=== PATIENT | female | born 1990 | race Caucasian/White ===

== ENCOUNTER → 2021-04-28 | Outpatient (CLI) | payer OTHER ==
--- NOTE | 2021-04-28 14:01 | Diagnostic Imaging Report ---
INDICATION: Encounter for supervision of normal first , second trimester. TECHNIQUE: Multiple real-time grayscale images were obtained over the gravid uterus. COMPARISON: None. FINDINGS: There is a single live fetus in a transverse presentation with head to the maternal right. heart rate was recorded at 143 BPM. Placenta is anterior. Amniotic fluid volume is normal. kidneys, bladder, and stomach are unremarkable. brain is unremarkable. Four-chamber heart view is somewhat limited due to position and movement. There is a three-vessel cord with normal insertion. Spine is unremarkable. Cervical length is 4.7 cm. Biometrical measurements are as follows: Biparietal 4.66 cm, age 20 weeks 1 days. Head circumference 16.70 cm, age 19 weeks 3 days. Abdominal circumference 14.55 cm, age 20 weeks 0 days. Femur length 3.26 cm, age 20 weeks 2 days. Sonographic estimate age: 20 weeks 0 days. Sonographic estimated date of delivery: 09/15/21. Estimated Weight: 323 gm (+/- 47 gm). LMP percentile: 51%. heart rate: 143 beats per minute. number: 1 of 1. IMPRESSION: Single live IUP of 20 weeks 0 days gestational age. Estimated date of confinement sonographically is 09/15/2021. No complicating features are seen. Survey is unremarkable, although the four-chamber heart view was limited due to position. Dictated by: Dictated on workstation # [id number]
== END ==
LOC: RAD 12:00
PROVIDERS: ATTEND Obstetrics & Gynecology
DX: Z34.02 Encounter for supervision of normal first pregnancy, second trimester (principal); Z3A.20 20 weeks gestation of pregnancy
CPT/HCPCS: 76805

== ENCOUNTER 2021-08-31 20:48 | Inpatient (IN) | payer OTHER ==
[2021-08-31] VITALS (26 sets, daily range): BP systolic 102–121; BP diastolic 58–78
[~2021-08-31] VITALS: Ht 167.7 cm; Wt 73.3 kg
[2021-08-31] MEDS ORDERED: D5 LR IV SOLUTION 1,000 ML IV ONE (21:13)
[2021-08-31] MEDS: D5 LR IV SOLUTION 1,000 ML IV SCH (21:27)
[2021-08-31] MEDS ORDERED: fentaNYL 2 mcg/ml BUPIVA 0.125 0 ML ONE (21:28)
[2021-08-31 21:39] LABS: BASOPHILS % (AUTO) 0 % (0-10); EOSINOPHILS # (AUTO) 0.1 10^3/uL (0.0-0.3); EOSINOPHILS % (AUTO) 1 % (0-10); HEMATOCRIT 37 % (35-52); HEMOGLOBIN 12.8 g/dL (11.5-16.0); LYMPHOCYTES # (AUTO) 1.7 10^3/uL (1.0-4.0); LYMPHOCYTES % (AUTO) 16 % (12-44); MEAN CORPUSCULAR HEMOGLOBIN 32 pg (25-34); MEAN CORPUSCULAR HGB CONC 34 g/dL (32-36); MEAN CORPUSCULAR VOLUME 93 fL (80-99); MEAN PLATELET VOLUME 10.5 fL (9.0-12.2); MONOCYTES # (AUTO) 0.8 10^3/uL (0.0-1.0); MONOCYTES % (AUTO) 7 % (0-12); NEUTROPHILS % (AUTO) 74 % (42-75); PLATELET COUNT 135 10^3/uL (130-400); WHITE BLOOD COUNT 10.7 10^3/uL (4.3-11.0)
[2021-08-31] MEDS ORDERED: CATHETER FLUSH 10 ML SYR IV PRN (21:45)
--- NOTE | 2021-08-31 21:52 | History & Physical-OB ---
RADHA BARCLAY 08/31/212151: OB - Chief Complaint & HPI Date/Time Date of Admission: Date of Admission: Date seen by a Provider: Aug 31, 2021 Time Seen by a Provider: 21:45 Chief Complaint/History OB-Reason for Admission/Chief: Onset of Labor (Patient began having contractions 5 minutes apart around 18:00) Hx : 5 Hx Para: 3 Gestational Age in Weeks: 37 Gestational Age in Days: 5 Admission Nurse Assessment Rev: Yes Allergies and Home Medications Allergies Coded Allergies: Penicillins (Verified Allergy, Intermediate, Hives, 08/31/21) OB - History Hx of Present Care: Yes Ultrasounds: Normal mid trimester US Obstetrical Complications: None Medical Complications: None Obstetrical History Hx # Term Pregnancies: 1 Hx # Pregnancies: 2 Number of Living Children: 3 Hx Total # of Abortions (Spona: 1 Patient Past Medical History Had uterine polyps removed and the lining of her uterus was resected last year OB - Admission Exam Physical Exam HEENT: TMs Normal Heart: Rhythm Normal Lungs: Clear Abdomen: Soft Extremities: Normal Reflexes: Normal Cervical Dilatation: 5cm Effacement: 75% Station: 0 Membranes: Intact Heart Rate: 140's Accelerations: Accelerations Present Decelerations: No Decelerations Short Term Variability: Present Aluminum Container Tester Variability: Average (6-25) Contractions on Admission: 6-10 Minutes Apart (Started around 18:00) Intensity: Moderate Guillaume Scoring Tool (Modified) Dilation (cm): >5cm (3) Effacement (%): 51-79% (2) Descent/Station: -1,0 (2) Cervix Consistency: Medium(1) Cervix Position: Anterior (2) Add 1 point for: Each previous vaginal delivery (1) (2 previous vaginal deliveries) Guillaume Score: 12 Labs Laboratory Tests Test 08/31/21 21:20 Range/Units White Blood Count 10.7 4.3-11.0 10^3/uL Red Blood Count 4.04 3.80-5.11 10^6/uL Hemoglobin 12.8 11.5-16.0 g/dL Hematocrit 37 35-52 % Mean Corpuscular Volume 93 80-99 fL Mean Corpuscular Hemoglobin 32 25-34 pg Mean Corpuscular Hemoglobin Concent 34 32-36 g/dL Red Cell Distribution Width 13.0 10.0-14.5 % Platelet Count 135 130-400 10^3/uL Mean Platelet Volume 10.5 9.0-12.2 fL Immature Granulocyte % (Auto) 2 % Neutrophils (%) (Auto) 74 42-75 % Lymphocytes (%) (Auto) 16 12-44 % Monocytes (%) (Auto) 7 0-12 % Eosinophils (%) (Auto) 1 0-10 % Basophils (%) (Auto) 0 0-10 % Neutrophils # (Auto) 8.0 H 1.8-7.8 10^3/uL Lymphocytes # (Auto) 1.7 1.0-4.0 10^3/uL Monocytes # (Auto) 0.8 0.0-1.0 10^3/uL Eosinophils # (Auto) 0.1 0.0-0.3 10^3/uL Basophils # (Auto) 0.0 0.0-0.1 10^3/uL Immature Granulocyte # (Auto) 0.2 H 0.0-0.1 10^3/uL OB - Assessment/Plan/Diagnosis Assessment Assessment: active labor Admission Bety Arora is a 31yo F @ 37w5d here for active labor. Was seen in Dr. Spear's office this morning and had her membranes sweeped. Had some contractions throughout the day and around 18:00 the patient started to have contractions every 5 minutes so she decided to come to the hospital. Her last was a and she is wanting to attempt another for this . Admission Status: Inpatient Order (span 2 midnights) Reason for Inpatient Admission: Plan Plan: Induction Induction Method: per Pitocin Protocol KATHIE SPEAR DO 08/31/21 4305: Allergies and Home Medications Allergies Coded Allergies: Penicillins (Verified Allergy, Intermediate, Hives, 08/31/21) Patient Home Medication List Home Medication List Reviewed: Yes RADHA BARCLAY Aug 31, 2021 21:52 KATHIE SPEAR DO Aug 31, 2021 23:45
[2021-08-31] MEDS ORDERED: fentaNYL INJ 100 MCG/2 ML AMP ONE (22:59)
[2021-08-31] MEDS ORDERED: OXYTOCIN PRE-MIX DRIP 500 ML IV ONE ×2 (22:59→23:42)
--- NOTE | 2021-08-31 23:43 | OB Labor & Delivery Record ---
L&D History Date of Service Date of Service: Aug 31, 2021 History Expected Date of Delivery: Sep 16, 2021 Gestational Age in Weeks: 37 Hx : 5 Hx Para: 3 Complications Events: Routine care Operative Indications (Cesarea: N/A-Vaginal Delivery Intrapartal Events: None L&D Stage1 Stage One Onset of Labor - Date: Aug 31, 2021 Monitors and Tracing Monitor Mode: External Monitor Accelerations: Uniform Monitor Decelerations: Variable Hotel Superintendent Variability: Average (6-10) Short Term Variability: Present Presentation: Vertex Rupture of Membranes Spontaneous Ruture of Membrane: No Amniotic Membrane Rupture Time: 11:15 Amniotic Membrane Fluid Desc.: Clear Vaginal Bleeding Description: Normal Show Progress/Notes Patient admitted in active labor, epidural attempted and unsuccessful. Labor spinal placed, after which AROM performed and patient was 10 cm and +1 station. L&D Stage2 Stage Two Stage II Date: Aug 31, 2021 Monitors and Tracing Monitor Mode: External Monitor Accelerations: Uniform Monitor Decelerations: Variable Mcc Variability: Average (6-10) Short Term Variability: Present Position: Right Occiput Anterior Presentation: Vertex Cord Descript/Complications Cord Vessel Description: 3 Vessels Complications compound presentation Delivery Type Delivery Method: Spontaneous Vaginal Anterior Shoulder: Right Episiotomy/Perineal Laceration Laceraction(s)/Extensions: Yes Episiotomy Description: Vaginal Extension/lac, 1st degree Degree (describe repair) 1st degree vaginal laceration repaired using 3-0 rapide in usual fashion. Condition of Infant Delivery 1 minute Comment: 8 5 minute Comment: 9 Notes live female weight 7lbs 4 oz Condition of Condition of : Living Exam: No Observed Abnormalities Resuscitation Resuscitation: N/A - Spontaneous Resp L&D Stage3 Stage Three Stage III Date: Aug 31, 2021 Pictocin Pitocin Administration Comment: 30 mu wide open after delivery of placenta Placenta Delivery Placenta Delivery: Spontaneous Delivery Summary Summary Estimated blood loss (mL): 350 Attending at delivery: Kathie Marina DO Condition of Delivery Examined: Cervix Examined, Uterus Explored Post Hemorrhage: No Condition of Mother stable Condition of Infant (s) stable KATHIE MARINA DO Aug 31, 2021 23:43
[2021-08-31] MEDS ORDERED: HYDROcodone/APAP 5 MG/325 MG (LORTAB) TAB PO PRN (23:45)
[2021-08-31] MEDS ORDERED: WITCH HAZEL(TUCKS) 40 EA JAR TOP PRN (23:45)
[2021-08-31] MEDS ORDERED: BENZOCAINE/MENTHOL (DERMOPLAST) 56 ML CAN TP PRN (23:45)
[2021-08-31] MEDS ORDERED: TETANUS,DIPTH,PERTUSS P/F (BOOSTRIX) 0.5 ML VIAL IM ONE (23:45)
[2021-08-31] MEDS ORDERED: MEASLES,MUMPS,RUBELLA 1 EA INJ SQ ONE (23:45)
[2021-08-31] MEDS ORDERED: DIBUCAINE 1% OINTMENT 30 GM TUBE TOP PRN (23:45)
[2021-08-31] MEDS ORDERED: NALOXONE 0.4 MG/ML 1 ML (NARCAN) VIAL IV PRN (23:45)
--- NOTE | 2021-08-31 23:46 | Discharge Inst-Women's Service ---
Discharge Inst-Women's Serv Depart Medication/Instructions New, Converted or Re-Newed RX: Transmitted to Pharmacy Final Diagnosis PPD 1 NVD Problems Reviewed?: Yes Consults/Follow Up Additional Follow Up: Yes Orders/Referrals Dr. Marina in 6 weeks Activity Activity: Activity as Tolerated Driving Instructions: No Driving for 1 Week NO SMOKING: NO SMOKING Nothing Inside Vagina: No Douching, No [place], No Tampons Diet Discharge Diet: No Restrictions Symptoms to Report to : Bleeding Excessive, Pain Increased, Fever Over 101 Degrees F, Vaginal Bleeding Increase, Questions/Concerns For Any Problems or Questions: Contact Your Physician KATHIE MARINA DO Aug 31, 2021 23:46
[2021-08-31] MEDS ORDERED: DOCU100C37 PO (23:48)
[2021-08-31] MEDS ORDERED: IBUP-844 PO (23:48)
[2021-08-31] MEDS ORDERED: BENZ78AE5 TP (23:48)
[2021-08-31] MEDS ORDERED: DIBU30OI TOP (23:48)
[2021-08-31] MEDS ORDERED: ACHD5005 PO (23:48)
[2021-08-31] MEDS: OXYTOCIN PRE-MIX DRIP 500 ML IV SCH (23:57)
[2021-09-01] VITALS (9 sets, daily range): BP systolic 99–126; BP diastolic 51–64
[2021-09-01] MEDS: IBUPROFEN 600 MG (MOTRIN) TAB PO SCH ×4 (04:10→19:17)
[2021-09-01 05:53] LABS: BASOPHILS % (AUTO) 0 % (0-10); EOSINOPHILS % (AUTO) 0 % (0-10); HEMATOCRIT 35 % (35-52); HEMOGLOBIN 11.9 g/dL (11.5-16.0); LYMPHOCYTES # (AUTO) 1.6 10^3/uL (1.0-4.0); LYMPHOCYTES % (AUTO) 12 % (12-44); MEAN CORPUSCULAR HEMOGLOBIN 32 pg (25-34); MEAN CORPUSCULAR HGB CONC 34 g/dL (32-36); MEAN CORPUSCULAR VOLUME 93 fL (80-99); MEAN PLATELET VOLUME 10.3 fL (9.0-12.2); MONOCYTES # (AUTO) 0.9 10^3/uL (0.0-1.0); MONOCYTES % (AUTO) 7 % (0-12); NEUTROPHILS # (AUTO) 10.9 10^3/uL (1.8-7.8); NEUTROPHILS % (AUTO) 80 % (42-75); PLATELET COUNT 138 10^3/uL (130-400); WHITE BLOOD COUNT 13.7 10^3/uL (4.3-11.0)
[2021-09-01] MEDS: CATHETER FLUSH 10 ML SYR IV SCH ×2 (06:01→23:44)
[2021-09-01] MEDS: D5 LR IV SOLUTION 1,000 ML IV SCH ×2 (06:11→23:44)
[2021-09-01] MEDS: DOCUSATE SODIUM 100 MG (COLACE) CAP PO SCH ×2 (09:06→19:17)
[2021-09-01] MEDS: FERROUS SULF 325 MG (IRON) TAB PO SCH (09:06)
[2021-09-01] MEDS: PRENATAL VITAMIN 1 EA TAB PO SCH (09:06)
--- NOTE | 2021-09-01 14:20 | Postpartum Progress Note ---
Note Note Day # 1 Subjective: Patient is without complaints. Ambulating, voiding. Tolerating a regular diet without nausea or vomiting. Normal lochia. Pain is well controlled with oral pain medications. Breast feeding. Objective: Physical Exam: General - Alert and oriented, no apparent distress Abdomen - Soft, appropriately tender to palpation, non-distended, fundus firm at umbilicus Extremities - no edema, negative Rigoberto's bilaterally Assessment: Post- day # 1, status post vaginal delivery. Recovering well, hemodynamically stable Acute blood loss anemia Plan: Routine care. Encourage breast feeding. Encourage ambulation. Ferrous sulfate supplementation. Plan for discharge tomorrow Vitals - Labs Vital Signs - I&O Vital Signs Date Time Temp Pulse Resp B/P (MAP) Pulse Ox O2 Delivery O2 Flow Rate FiO2 09/01/21 04:19 36.2 70 16 99/51 (67) 95 Room Air 09/01/21 01:29 36.6 09/01/21 01:21 76 16 106/62 (77) 97 Room Air 09/01/21 01:06 74 16 112/64 (80) 97 Room Air 09/01/21 00:51 74 16 101/56 (71) 97 Room Air 09/01/21 00:36 78 16 116/57 (76) 97 Room Air 09/01/21 00:22 86 16 111/55 (73) 97 Room Air 09/01/21 00:06 77 16 126/62 (83) 97 Room Air 08/31/21 23:51 78 16 112/69 (83) 97 Room Air 08/31/21 23:48 81 16 113/64 (80) 97 Room Air 08/31/21 23:45 88 16 115/64 (81) 97 Room Air 08/31/21 23:42 85 16 113/59 (77) 97 Room Air 08/31/21 23:39 86 16 114/61 (78) 97 Room Air 08/31/21 23:37 86 16 112/58 (76) 97 Room Air 08/31/21 23:35 36.3 08/31/21 23:33 85 16 102/58 (73) 97 Room Air 08/31/21 23:30 88 16 106/61 (76) 97 Room Air 08/31/21 23:27 71 16 111/68 (82) 97 Room Air 08/31/21 23:21 78 18 109/58 (75) 99 Room Air 08/31/21 23:19 82 18 111/68 (82) 99 Room Air 08/31/21 23:16 73 18 107/66 (80) 97 Room Air 08/31/21 23:13 75 18 103/67 (79) 97 Room Air 08/31/21 23:10 78 18 106/70 (82) 97 Room Air 08/31/21 23:07 36.5 08/31/21 23:06 86 18 106/70 (82) 99 Room Air 08/31/21 23:03 86 18 108/67 (81) 88 Room Air 08/31/21 23:00 83 18 107/63 (78) 99 Room Air 08/31/21 22:29 91 18 114/75 (88) 98 Room Air 08/31/21 22:25 88 18 116/75 (89) 98 Room Air 08/31/21 22:20 96 18 120/74 (89) 97 Room Air 08/31/21 22:16 87 18 111/71 (84) 97 Room Air 08/31/21 22:14 96 18 116/74 (88) 97 Room Air 08/31/21 22:10 82 18 108/73 (85) 99 Room Air 08/31/21 22:05 86 18 121/70 (87) 99 Room Air 08/31/21 21:35 91 18 102/70 (81) 98 Room Air 08/31/21 21:04 36.6 88 18 99 Room Air 08/31/21 21:04 36.6 88 18 113/78 (90) 99 Room Air I & O 09/01/21 07:00 Intake Total 1975 ml Balance 1975 ml Labs Laboratory Tests 08/31/21 21:20: White Blood Count 10.7, Red Blood Count 4.04, Hemoglobin 12.8, Hematocrit 37, Mean Corpuscular Volume 93, Mean Corpuscular Hemoglobin 32, Mean Corpuscular Hemoglobin Concent 34, Red Cell Distribution Width 13.0, Platelet Count 135, Mean Platelet Volume 10.5, Immature Granulocyte % (Auto) 2, Neutrophils (%) (Auto) 74, Lymphocytes (%) (Auto) 16, Monocytes (%) (Auto) 7, Eosinophils (%) (Auto) 1, Basophils (%) (Auto) 0, Neutrophils # (Auto) 8.0H, Lymphocytes # (Auto) 1.7, Monocytes # (Auto) 0.8, Eosinophils # (Auto) 0.1, Basophils # (Auto) 0.0, Immature Granulocyte # (Auto) 0.2H 09/01/21 05:27: White Blood Count 13.7H, Red Blood Count 3.72L, Hemoglobin 11.9, Hematocrit 35, Mean Corpuscular Volume 93, Mean Corpuscular Hemoglobin 32, Mean Corpuscular Hemoglobin Concent 34, Red Cell Distribution Width 13.0, Platelet Count 138, Mean Platelet Volume 10.3, Immature Granulocyte % (Auto) 1, Neutrophils (%) (Auto) 80H, Lymphocytes (%) (Auto) 12, Monocytes (%) (Auto) 7, Eosinophils (%) (Auto) 0, Basophils (%) (Auto) 0, Neutrophils # (Auto) 10.9H, Lymphocytes # (Auto) 1.6, Monocytes # (Auto) 0.9, Eosinophils # (Auto) 0.0, Basophils # (Auto) 0.0, Immature Granulocyte # (Auto) 0.2H ACACIA LEYVA APRN Sep 01, 2021 14:20
--- NOTE | 2021-09-01 14:42 | Anesthesia-Regional Post-Op ---
Regional Patient Condition Mental Status: Alert, Oriented x3 Circulation: Same as Pre-Op Headache: Absent Sensation: Full Recovery Motor Block: Absent Post Op Complications Complications None Follow Up Care/Instructions Patient Instructions None needed. Anesthesia/Patient Condition Patient is doing well, no complaints, stable vital signs, no apparent adverse anesthesia problems. No complications reported per nursing. KM CANO CRNA Sep 01, 2021 14:42
[2021-09-02] MEDS: IBUPROFEN 600 MG (MOTRIN) TAB PO SCH ×2 (00:24→06:42)
[2021-09-02 00:25] VITALS: BP 97/56
[2021-09-02] MEDS: CATHETER FLUSH 10 ML SYR IV SCH (05:47)
[2021-09-02] MEDS: D5 LR IV SOLUTION 1,000 ML IV SCH (05:47)
[2021-09-02 06:40] VITALS: BP 106/62
[2021-09-02] MEDS: PRENATAL VITAMIN 1 EA TAB PO SCH (06:42)
[2021-09-02] MEDS: FERROUS SULF 325 MG (IRON) TAB PO SCH (08:14)
[2021-09-02] MEDS: DOCUSATE SODIUM 100 MG (COLACE) CAP PO SCH (08:14)
--- NOTE | 2021-09-02 08:15 | Postpartum Progress Note ---
Note Note Day # 1 Subjective: Patient is without complaints. Ambulating, voiding. Tolerating a regular diet without nausea or vomiting. Normal lochia. Pain is well controlled with oral pain medications. Objective: Physical Exam: General - Alert and oriented, no apparent distress Abdomen - Soft, appropriately tender to palpation, non-distended, fundus firm at umbilicus Extremities - no edema, negative Rigoberto's bilaterally Assessment: PPD 2 NVD Plan: Routine care. Encourage breast feeding. Encourage ambulation. Ferrous sulfate supplementation. Plan for discharge today Vitals - Labs Vital Signs - I&O Vital Signs Date Time Temp Pulse Resp B/P (MAP) Pulse Ox O2 Delivery O2 Flow Rate FiO2 09/02/21 06:40 36.8 65 18 106/62 (77) 98 Room Air 09/02/21 00:25 36.3 75 18 97/56 (70) 97 Room Air 09/01/21 16:37 36.3 77 18 105/60 (75) 97 Room Air 09/01/21 09:06 36.4 78 16 104/60 (75) 96 Room Air KATHIE MARINA DO Sep 02, 2021 08:15
[2021-09-02 08:16] VITALS: BP 115/69
== END 2021-09-02 10:30 | disposition home or self-care (01) | DRG 806 ==
LOC: WSo 20:48 → LDRP 20:48 → WSo 21:38 → LDRP 09-01 01:45 → WS 09-01 13:20
PROVIDERS: ADMIT Obstetrics & Gynecology; ATTEND Obstetrics & Gynecology
PROC: 10E0XZZ Delivery of Products of Conception, External Approach (ICD-10-PCS; principal; 2021-08-31)
PROC: 0HQ9XZZ Repair Perineum Skin, External Approach (ICD-10-PCS; 2021-08-31)
PROC: 3E033VJ Introduction of Other Hormone into Peripheral Vein, Percutaneous Approach (ICD-10-PCS; 2021-08-31)
DX: O34.211 Maternal care for low transverse scar from previous cesarean delivery (principal); D62 Acute posthemorrhagic anemia; Z37.0 Single live birth; O32.6XX0 Maternal care for compound presentation, not applicable or unspecified; Z3A.37 37 weeks gestation of pregnancy; O70.0 First degree perineal laceration during delivery; O90.81 Anemia of the puerperium; Z88.0 Allergy status to penicillin
CPT/HCPCS: 36415; 85025; 86850; 86900; 86901; 99212